=== PATIENT | female | born 1975 | race Caucasian/White ===

== ENCOUNTER 2018-05-03 09:49 | Emergency (ER) | payer MEDICAID ==
[~2018-05-03] VITALS: Ht 157.5 cm; Wt 75.9 kg
[2018-05-03 09:57] VITALS: Ht 157.5 cm; Wt 75.9 kg
[2018-05-03] MEDS ORDERED: ONDANSETRON (ODT) 4 MG TAB ODT STA (10:28)
[2018-05-03] MEDS ORDERED: HYDROCODONE/APAP (5/325) TAB PO ONE (10:30)
[2018-05-03] MEDS ORDERED: HYDR-4011 PO (13:14)
[2018-05-03] MEDS ORDERED: CIPR500T4 PO (13:14)
[2018-05-03 13:26] VITALS: BP 107/71; RESP 18
--- NOTE | 2018-05-03 13:29 | ERD ---
ER Documentation Chief Complaint Chief Complaint Complains of abdominal and back pain x 3 days HPI 42-year-old female presenting with abdominal pain back pain times 3 days. Patient has had normal urination bowel movement. She states that she has flank pain on the left side. Denies vomiting no fevers. Denies dysuria. Denies med ical problems. She describes as a constant type pain that is sharp and stabbing. NKDA. Surgical history denies. Up-to-date on vaccinations. Social history denies ROS All systems reviewed and are negative except as per history of present illness. Medications Home Meds Active Scripts Hydrocodone/Acetaminophen ([place] 5-325 Tablet) 1 Each Tablet, 1 TAB PO Q6H PRN for PAIN, #7 TAB Prov:AMANDO LANTIGUA PA-C 05/03/18 Ciprofloxacin Hcl* (Ciprofloxacin Hcl*) 500 Mg Tablet, 500 MG PO BID for 10 Days, TAB Prov:AMANDO LANTIGUA PA-C 05/03/18 Allergies Allergies: Coded Allergies: No Known Allergy (Verified , 05/03/18) PMhx/Soc Medical and Surgical Hx: pt denies Medical Hx, pt denies Surgical Hx History of Surgery: No Anesthesia Reaction: No Hx Neurological Disorder: No Hx Respiratory Disorders: No Hx Cardiac Disorders: No Hx Psychiatric Problems: No Hx Miscellaneous Medical Probl: No Hx Alcohol Use: No Hx Substance Use: No Hx Tobacco Use: No Smoking Status: Never smoker FmHx Family History: No diabetes, No coronary disease, No other Physical Exam Vitals Vital Signs Date Temp Pulse Resp B/P (MAP) Pulse Ox O2 O2 Flow FiO2 Time Delivery Rate 05/03/18 97.6 92 20 116/58 97 09:57 (77) Physical Exam GENERAL: The patient is well-appearing, well-nourished, in no acute distress CHEST: Clear to auscultation bilaterally. There are no rales, wheezes or rhonchi. HEART: Regular rate and rhythm. No murmurs, clicks, rubs or gallops. No S3 or S4. ABDOMEN: Normal active bowel sounds. No central clearing organomegaly. Mild toes palpation along the left flank. BACK: No midline or flank tenderness. Result Diagram: 05/03/18 1040 05/03/18 1040 Results 24 hrs Laboratory Tests Test 05/03/18 10:40 05/03/18 11:13 05/03/18 13:09 White Blood Count 10.1 10^3/ul Red Blood Count 3.61 10^6/ul Hemoglobin 11.1 g/dl Hematocrit 34.5 % Mean Corpuscular Volume 95.6 fl Mean Corpuscular Hemoglobin 30.7 pg Mean Corpuscular 32.2 g/dl Hemoglobin Concent Red Cell Distribution Width 14.2 % Platelet Count 318 10^3/UL Mean Platelet Volume 10.6 fl Immature Granulocytes % 0.400 % Neutrophils % 83.6 % Lymphocytes % 9.9 % Monocytes % 4.9 % Eosinophils % 0.9 % Basophils % 0.3 % Nucleated Red Blood Cells % 0.0 /100WBC Immature Granulocytes # 0.040 10^3/ul Neutrophils # 8.5 10^3/ul Lymphocytes # 1.0 10^3/ul Monocytes # 0.5 10^3/ul Eosinophils # 0.1 10^3/ul Basophils # 0.0 10^3/ul Nucleated Red Blood Cells # 0.0 10^3/ul Sodium Level 142 mmol/L Potassium Level 3.9 mmol/L Chloride Level 105 mmol/L Carbon Dioxide Level 24 mmol/L Anion Gap 13 Blood Urea Nitrogen 10 mg/dl Creatinine 0.68 mg/dl Est Glomerular Filtrat > 60 mL/min Rate mL/min Glucose Level 117 mg/dl Calcium Level 9.2 mg/dl Total Bilirubin 1.2 mg/dl Direct Bilirubin 0.00 mg/dl Indirect Bilirubin 1.2 mg/dl Aspartate Amino 32 IU/L Transf (AST/SGOT) Alanine 34 IU/L Aminotransferase (ALT/SGPT) Alkaline Phosphatase 91 IU/L Total Protein 8.1 g/dl Albumin 4.3 g/dl Globulin 3.80 g/dl Albumin/Globulin Ratio 1.13 Lipase 67 U/L POC Beta HCG, Qualitative NEGATIVE Bedside Urine pH (LAB) 6.0 Bedside Urine Protein (LAB) Negative Bedside Urine Glucose (UA) Negative Bedside Urine Ketones (LAB) Negative Bedside Urine Blood Trace-intact Bedside Urine Nitrite (LAB) Negative Bedside Urine Leukocyte Esterase 1+ (L Current Medications Medications Dose Sig/Angelita Start Time Status Last (Trade) Ordered Route PRN Stop Time Admin Dose Reason Admin 1 tab ONCE ONCE 05/03/18 DC 05/03/18 Acetaminophen PO 10:30 11:22 / 05/03/18 Hydrocodone 10:31 Bitart ([place] (5/325)) Ondansetron 4 mg ONCE STAT 05/03/18 DC 05/03/18 HCl (Zofran ODT 10:28 11:22 Odt) 05/03/18 10:30 Procedures/MDM DIAGNOSTIC IMAGING REPORT Patient: KASHIF SALGADO : 1975 Age: 42 Sex: F MR #: [id number] DOS: 05/03/18 1028 Ordering MD: NITA LANTIGUA PA-C Location: E Room/Bed: PROCEDURE: CT ABDOMEN AND PELVIS WITHOUT CONTRAST. CLINICAL INDICATION: Abdominal pain TECHNIQUE: CT scan of the abdomen and pelvis without contrast was performed on a multidetector high-resolution CT scanner. The patient was scanned without intravenous contrast. Coronal and sagittal reformatted images were obtained from the axial source images. Images were reviewed on a high-resolution PACS workstation. The total exam CTDI equals 13.8 mGy and the total exam DLP equals 809.8 mGy-cm. One or more of the following dose reduction techniques were used: Automated exposure control. Adjustment of the mA and/or kV according to patient size. Use of iterative reconstruction technique. DICOM images are available COMPARISON: None FINDINGS: CT abdomen: The lung bases are clear. The heart size is within normal limits. There is no significant pericardial effusion. Hepatic morphology is within normal limits. There is diffuse fatty infiltration of the liver. Gallbladder is unremarkable. No evidence of intrahepatic or extrahepatic biliary dilatation. The spleen and pancreas are within normal limits. Both adrenal glands are within normal limits. Both kidneys are normal anatomic position. The left kidney is enlarged and there is left perinephric fatty stranding. There is mild left-sided hydronephrosis. No gross ureteric calculi noted at this time. The visualized GI tract demonstrate normal caliber loops of small and large bowel. No obstruction. Stool filled loops of large bowel suggestive of constipation. The appendix is within normal limits. The unenhanced aorta is unremarkable. Several retroperitoneal periaortic lymph nodes are identified, with the largest measuring up to 1.[address] pelvis: The bladder is within normal limits. Nonspecific free fluid within the pelvis. Uterus is identified with fluid within the endometrial canal. There are bilateral cystic adnexa.. No significant pelvic lymphadenopathy. The visualized osseous structures appears to be within normal limits. IMPRESSION: 1. ENLARGED LEFT KIDNEY WITH LEFT PERINEPHRIC FATTY STRANDING AND MILD LEFT- SIDED HYDRONEPHROSIS. NO GROSS URETERIC CALCULI. SEVERAL PERIAORTIC RETROPERITONEAL LYMPH NODES ARE NOTED WITH THE LARGEST MEASURING UP TO 1.7 CM. SUSPECT UNDERLYING INFECTION, POSSIBLY PYELONEPHRITIS. EVALUATION IS LIMITED WITHOUT IV CONTRAST. A RECENTLY PASSED STONE IS ALSO A POSSIBILITY. CORRELATE WITH URINALYSIS. 2. Nonspecific free fluid within the pelvis. The uterus is mildly prominent with fluid within the endometrial canal. Findings can be physiologic. Consider correlation with ultrasound of the pelvis if clinically indicated. 3. Fatty liver. MDM: 42-year-old female presenting with left flank pain. I believe patient may have passed a stone however given there is concern for possible infection I will treat for early pyelonephritis. Urine was sent for culture. I have low suspicion for abdominal emergency. Patient's pain is controlled in the ER. Patient's blood work is within normal limits. Patient is discharged stricter precautions and told to follow-up with primary care within 1-2 days for close evaluation. Patient is told symptoms change or worsen to immediately return to the ER. All questions answered at discharge Departure Diagnosis: Primary Impression: Abdominal pain Condition: Stable Patient Instructions: Abdominal Pain Referrals: [facility] YOU HAVE RECEIVED A MEDICAL SCREENING EXAM AND THE RESULTS INDICATE THAT YOU DO NOT HAVE A CONDITION THAT REQUIRES URGENT TREATMENT IN THE EMERGENCY DEPARTMENT. FURTHER EVALUATION AND TREATMENT OF YOUR CONDITION CAN WAIT UNTIL YOU ARE SEEN IN YOUR DOCTORS OFFICE WITHIN THE NEXT 1-2 DAYS. IT IS YOUR RESPONSIBILITY TO MAKE AN APPOINTMENT FOR FOLOW-UP CARE. IF YOU HAVE A PRIMARY DOCTOR --you should call your primary doctor and schedule an appointment IF YOU DO NOT HAVE A PRIMARY DOCTOR YOU CAN CALL OUR PHYSICIAN REFERRAL HOTLINE AT IF YOU CAN NOT AFFORD TO SEE A PHYSICIAN YOU CAN CHOSE FROM THE FOLLOWING [facility] [address] [facility] [address] [facility] [facility] [address] [facility] [address] [facility] [address] [facility]. [facility] [address] Additional Instructions: FOLLOW UP WITH YOUR PRIMARY CARE PHYSICIAN TOMORROW.Return to this facility if you are not improving as expected. AMANDO LANTIGUA PA-C May 03, 2018 13:29
== END 2018-05-03 13:26 | disposition home or self-care (01) ==
LOC: FTE 09:49
DX: R10.9 Unspecified abdominal pain (principal)
CPT/HCPCS: 36415; 74176; 80053; 81003; 81025; 83690; 85025; Z7502; Z7610

== ENCOUNTER 2018-05-05 14:34 | Emergency (ER) | payer MEDICAID ==
[~2018-05-05] VITALS: Wt 72.8 kg
[~2018-05-05 14:34] MED LIST: CIPR500T4 PO; HYDR-4011 PO
[2018-05-05] MEDS ORDERED: SOD CHLORIDE 0.9% 1,000 ML IV STA (16:20)
[2018-05-05] MEDS ORDERED: KETOROLAC 30 MG INJ IV STA (16:20)
[2018-05-05] MEDS ORDERED: NA PHOSPHATE/BIPHOS 133 ML ENEMA PR ONE (16:30)
[2018-05-05] MEDS ORDERED: DOCUSATE SODIUM 250 MG CAP PO ONE (16:30)
[2018-05-05] MEDS ORDERED: GLYCERIN (ADULT) SUPP PR ONE (16:30)
[2018-05-05] MEDS ORDERED: GLYC1SUP92 PR (17:14)
[2018-05-05] MEDS ORDERED: DOCU-144 PO (17:14)
--- NOTE | 2018-05-05 17:22 | ERD ---
ER Documentation Chief Complaint Chief Complaint CONSTIPATION X 4 DAYS HPI This is a 42-year-old female with a nonsignificant past medical history presents ED with complaints of constipation with associated left-sided abdominal pain that is been constant for the past 4 days. Patient states that she has not had a bowel movement in over 4 days. Patient was seen here 2 days ago for her abdominal pain and states that has been unchanged. Patient denies fever, chills, nausea, vomiting, melena, hematochezia, hemoptysis, dysuria, hematuria, vaginal pain or vaginal discharge. Denies all other symptoms. No known drug allergies. ROS All systems reviewed and are negative except as per history of present illness. Medications Home Meds Active Scripts Glycerin* (Glycerin (Adult)*) 1 Each Supp.rect, 1 EACH ND DAILY PRN for CONSTIPATION for 5 Days, SUPP.RECT Prov:MISAEL ZAPATA PA-C 05/05/18 Docusate Sodium* (Colace*) 100 Mg Capsule, 100 MG PO TID, #30 CAP Prov:MISAEL ZAPATA PA-C 05/05/18 Hydrocodone/Acetaminophen ([place] 5-325 Tablet) 1 Each Tablet, 1 TAB PO Q6H PRN for PAIN, #7 TAB Prov:AMANDO LANTIGUA PA-C 05/03/18 Ciprofloxacin Hcl* (Ciprofloxacin Hcl*) 500 Mg Tablet, 500 MG PO BID for 10 Days, TAB Prov:AMANDO LANTIGUA PA-C 05/03/18 Allergies Allergies: Coded Allergies: No Known Allergy (Verified , 05/03/18) PMhx/Soc History of Surgery: No Anesthesia Reaction: No Hx Neurological Disorder: No Hx Respiratory Disorders: No Hx Cardiac Disorders: No Hx Psychiatric Problems: No Hx Miscellaneous Medical Probl: No Hx Alcohol Use: No Hx Substance Use: No Hx Tobacco Use: No Smoking Status: Never smoker FmHx Family History: No diabetes Physical Exam Vitals Vital Signs Date Temp Pulse Resp B/P (MAP) Pulse Ox O2 O2 Flow FiO2 Time Delivery Rate 05/05/18 98.1 78 88 121/61 99 14:38 (81) Physical Exam Const: No acute distress Head: Atraumatic Eyes: Normal Conjunctiva ENT: Normal External Ears, Nose and Mouth. Neck: Full range of motion. No meningismus. Resp: Clear to auscultation bilaterally Cardio: Regular rate and rhythm, no murmurs Abd: Soft, nondistended, no peritoneal signs, no rigidity, no surgical abdomen, bowel sounds present all 4 quadrants, nontender light palpation all 4 quadrants Back: No midline or flank tenderness Ext: No cyanosis, or edema Neur: Awake and alert Psych: Normal Mood and Affect Result Diagram: 05/05/18 1640 05/05/18 1640 Results 24 hrs Laboratory Tests Test 05/05/18 16:40 05/05/18 16:44 05/05/18 17:20 White Blood Count 10.5 10^3/ul Red Blood Count 3.63 10^6/ul Hemoglobin 11.0 g/dl Hematocrit 34.3 % Mean Corpuscular Volume 94.5 fl Mean Corpuscular Hemoglobin 30.3 pg Mean Corpuscular 32.1 g/dl Hemoglobin Concent Red Cell Distribution Width 13.7 % Platelet Count 311 10^3/UL Mean Platelet Volume 10.2 fl Immature Granulocytes % 0.400 % Neutrophils % 79.3 % Lymphocytes % 12.4 % Monocytes % 6.7 % Eosinophils % 0.9 % Basophils % 0.3 % Nucleated Red Blood Cells % 0.0 /100WBC Immature Granulocytes # 0.040 10^3/ul Neutrophils # 8.4 10^3/ul Lymphocytes # 1.3 10^3/ul Monocytes # 0.7 10^3/ul Eosinophils # 0.1 10^3/ul Basophils # 0.0 10^3/ul Nucleated Red Blood Cells # 0.0 10^3/ul Sodium Level 139 mmol/L Potassium Level 3.7 mmol/L Chloride Level 101 mmol/L Carbon Dioxide Level 27 mmol/L Anion Gap 11 Blood Urea Nitrogen 11 mg/dl Creatinine 0.85 mg/dl Est Glomerular Filtrat > 60 mL/min Rate mL/min Glucose Level 98 mg/dl Calcium Level 9.6 mg/dl Total Bilirubin 1.6 mg/dl Direct Bilirubin 0.00 mg/dl Indirect Bilirubin 1.6 mg/dl Aspartate Amino 34 IU/L Transf (AST/SGOT) Alanine 31 IU/L Aminotransferase (ALT/SGPT) Alkaline Phosphatase 96 IU/L Total Protein 9.0 g/dl Albumin 4.7 g/dl Globulin 4.30 g/dl Albumin/Globulin Ratio 1.09 Lipase 53 U/L POC Beta HCG, Qualitative NEGATIVE Urine Color YELLOW Urine Clarity SLIGHTLY CLOUDY Urine pH 5.0 Urine Specific [place] 1.016 Urine Ketones NEGATIVE mg/dL Urine Nitrite NEGATIVE mg/dL Urine Bilirubin NEGATIVE mg/dL Urine Urobilinogen 1+ mg/dL Urine Leukocyte Esterase 3+ Delores/ul Urine Microscopic RBC 5 /HPF Urine Microscopic WBC 68 /HPF Urine Squamous Epithelial Cells FEW /HPF Urine Bacteria FEW /HPF Urine Mucus FEW /HPF Urine Hemoglobin 2+ mg/dL Urine Glucose NEGATIVE mg/dL Urine Total Protein NEGATIVE mg/dl Current Medications Medications Dose Sig/Angelita Start Time Status Last (Trade) Ordered Route PRN Stop Time Admin Dose Reason Admin Sodium 1,000 ml @ Q1H STAT 05/05/18 DC 05/05/18 Chloride 1,000 mls/hr IV 16:20 16:48 05/05/18 17:19 Ketorolac 30 mg ONCE STAT 05/05/18 DC Tromethamine IV 16:20 (Toradol) 05/05/18 16:29 Docusate 250 mg ONCE ONCE 05/05/18 DC 05/05/18 Sodium PO 16:30 16:48 (Colace) 05/05/18 16:31 Sodium 133 ml ONCE ONCE 05/05/18 DC Biphosphate/ ND 16:30 Sodium 05/05/18 Phosphate 16:30 (Fleet Enema) Glycerin 1 supp ONCE ONCE 05/05/18 DC 05/05/18 (Glycerin ND 16:30 16:48 (Adult)) 05/05/18 16:31 Procedures/MDM LAB INTERPRETATION: CBC shows no evidence of hemorrhage or infection, mildly decreased hemoglobin of 11.0, hematocrit 34.3 Chemistry shows no evidence of significant electrolyte abnormalities or renal insufficiency, mildly increased indirect bilirubin 1.6 and total bilirubin of 1.6. Liver function test shows no evidence of acute biliary or hepatic dysfunction Lipase shows no evidence of acute pancreatitis Urinalysis remarkable for WBC, leukocyte esterase ER COURSE: The patient was given IV fluids, glycerin suppository and Colace The medication was well tolerated and the patient reports improvement in symptoms. The patient was stable throughout ED course. I kept the patient and/or family informed of laboratory and diagnostic imaging results throughout the emergency room course. The patient was promptly evaluated and a treatment plan was devised based on H&P and other data. This plan was discussed with the patient who agreed and had no further questions or concerns prior to discharge. MEDICAL DECISION MAKING: This is a 42-year-old female who presents ED with complaints of constipation with associated left-sided lower abdominal pain times 4 days. Patient was seen here 2 days ago and had a full workup for abdominal pain. Patient had a CT at this time which showed a possible pyelonephritis or possibly a recently passed stone. Patient was sent home with pain medication as well as ciprofloxacin. Patient returns today saying that she has been constipated over the past 4 days as well as continued left lower quadrant abdominal pain. Discussed with patient that a side effect of the pain medication is constipation. Patient was given constipation medication in the emergency department reports feeling better. . test is negative. Considered causes of female-specific abdominal pain including pelvic inflammatory disease, tubo-ovarian abscess, [id number], and ovarian torsion. Also considered causes of abdominal pain that are not gender-specific (e.g., appendicitis, volvulus, small bowel obstruction, mesenteric adenitis, acute cholecystitis/choledocholithiasis and other biliary pathology, etc.). Patient well-appearing with normal vital signs. No peritoneal signs and abdomen benign on multiple repeat examinations. Pt well hydrated. Laboratory testing and prior imaging here reviewed. Urinalysis is remarkable for WBCs and leukocyte esterase positive. It is likely that patient's left- sided lower abdominal pain is due to a pyelonephritis as wells as constipation. Patient is currently taking ciprofloxacin that was prescribed by provider 2 days ago. Advised patient to continue this medication for patient will be sent home with constipation medication. Patient given strict return precautions for worsening pain, inability to eat/drink, fevers (temperature over 100.4F), or other concerns. Prior to discharge all questions answered. She agrees with treatment plan and understands strict return precautions. Follow-up for repeat abdominal exam within 12 hours. DISPOSITION PLAN: We discussed follow up with the patient's primary care doctor within 24 to 48 hours. Patient counseled regarding my diagnostic impression and care plan. Prior to discharge all questions answered. Pt agrees with treatment plan and understands strict return precautions. Precautionary instructions provided including instructions to return to the ER if not improving or for any worsening or changing symptoms or concerns. SPECIALIST FOLLOW UP RECOMMENDED: GI Patient has been advised to follow up with primary care in 1-2 days. Disclaimer: Inadvertent spelling and grammatical errors are likely due to EHR/dictation software use and do not reflect on the overall quality of patient care. Also, please note that the electronic time recorded on this note does not necessarily reflect the actual time of the patient encounter. Departure Diagnosis: Primary Impression: Pyelonephritis Additional Impressions: Abdominal pain Abdominal location: left lower quadrant Qualified Codes: R10.32 - Left lower quadrant pain Constipation Constipation type: unspecified constipation type Qualified Codes: K59.00 - Constipation, unspecified Condition: Stable Patient Instructions: Abdominal Pain, Constipation (Adult), Pyelonephritis, Female (Adult), Treating Constipation Referrals: YVAN WILSON MD,KYLAH HOLLAND,SERGIO NAJERA,JOSE L HERRERA,JD MARTINEZ,[facility] () Usted se schroeder hecho un examen mdico de control que le indica que no est en frank condicin que requiera tratamiento urgente en el Departamento de Emergencia. Un estudio ms profundo y el tratamiento de ryan condicin pueden esperar sin ningn riesgo hasta que usted sea atendida/o en el consultorio de ryan mdico o frank clnica. Es responsabilidad suya arreglar frank mellisa para el seguimiento del rihcardson. MANEJO DE CONDICIONES NO URGENTES EN EL FUTURO 1) Si usted tiene un mdico de atencin primaria: Usted debera llamar a ryan mdico de atencin primaria antes de venir al departamento de emergencia. Despus de las horas de consultorio, ryan doctor o ryan asociado/a est disponible por telfono. El mdico o enfermero de jakub en el servicio telefnico puede asesorarle por neftali medio para atender el problema, o richardson contrario se puede programar frank mellisa. 2) Si usted no tiene un mdico de atencin primaria: Llame al mdico o clnica de referencia que aparece abajo elyssa las horas de consultorio para hacer frank mellisa para que le vean. CLINICAS: [facility] [phone] [address] [facility] [phone] [facility] [phone] [place] [address] [phone] [place] [id number] [phone] [facility] [phone] [address] Additional Instructions: Paciente aconseja volver a Departamento de urgencias inmediatamente para sntomas nuevos o que empeoran . Paciente aconseja posteriores con el PCP en 1-2 gonzalez . Paciente verbaliza la comprehensin y est de acuerdo con el tratamiento y el curso de accin. Si el paciente no tiene ninguna de atencin primaria pueden seguir con [facility] [address] [place] [address] o LAC + [address] [address] MISAEL ZAPATA PA-C May 05, 2018 17:22
[2018-05-05] MEDS ORDERED: IBUP-1542 PO (17:57)
[2018-05-05 18:10] VITALS: BP 118/68; PULSE 71; RESP 16
== END 2018-05-05 18:11 | disposition home or self-care (01) ==
LOC: FTE 14:34
DX: N12 Tubulo-interstitial nephritis, not specified as acute or chronic (principal)
CPT/HCPCS: 80053; 81001; 81025; 83690; 85025; 87086; J7030; Z7610; 36415; 96360

== ENCOUNTER 2018-10-26 20:29 | Emergency (ER) | payer MEDICAID ==
[~2018-10-26] VITALS: Ht 157.5 cm; Wt 68.9 kg
[~2018-10-26 20:29] MED LIST changes: +DOCU-144 PO; +GLYC1SUP92 PR; +IBUP-1542 PO
[2018-10-26 20:31] VITALS: Ht 157.5 cm; Wt 68.9 kg
--- NOTE | 2018-10-26 22:35 | ERD ---
ER Documentation Chief Complaint Chief Complaint pelvic pain x3 weeks w/ dysuria and frequency HPI This is a 43-year-old female presents here in the emergency department with complaints of suprapubic pain for about 3 weeks with dysuria. Stated that she has these symptoms before and that she knows that she needs cephalexin and Pyridium. LMP: September 17, 2018. G3, . Denies headache, head injury, loss of consciousness, dizziness, neck pain, neck stiffness, throat pain, difficulty swallowing, difficulty breathing lying flat, shoulder pain, chest pain, back pain, abdominal pain, nausea, vomiting, constipation, diarrhea, or possibility being , loss of bowel and bladder control, trauma, injury, falls, difficulty walking due to pain, numbness or tingling sensation, calf pain, recent travel, recent major surgery in the last 3 weeks, calf pain, recent long travel, recent exposure to any illness, recent antibiotic use in the last 3 months, fever, chills, seizures. Past medical history: Surgical history: Social: Denies smoking, use of alcoholic beverages, use of illegal drugs. ROS All systems reviewed and are negative except as per history of present illness. Medications Home Meds Active Scripts Cephalexin* (Keflex*) 500 Mg Capsule, 500 MG PO TID for 7 Days, CAP Prov:PASILABANANGELA F 10/26/18 Phenazopyridine Hcl* (Pyridium*) 100 Mg Tab, 100 MG PO TID PRN for URINARY PAIN, #8 TAB Prov:PASILABAN,JACQUELINAR F 10/26/18 Ibuprofen* (Motrin*) 600 Mg Tab, 600 MG PO Q6H PRN for PAIN AND OR ELEVATED TEMP, #30 TAB Prov:PASILABAN,JACQUELINAR F 10/26/18 Ibuprofen* (Motrin*) 600 Mg Tab, 600 MG PO Q6, #30 TAB Prov:MISAEL ZAPATA PA-C 05/05/18 Glycerin* (Glycerin (Adult)*) 1 Each Supp.rect, 1 EACH HI DAILY PRN for CONSTIPATION for 5 Days, SUPP.RECT Prov:MISAEL ZAPATA PA-C 05/05/18 Docusate Sodium* (Colace*) 100 Mg Capsule, 100 MG PO TID, #30 CAP Prov:MISAEL ZAPATA PA-C 05/05/18 Hydrocodone/Acetaminophen (Axson 5-325 Tablet) 1 Each Tablet, 1 TAB PO Q6H PRN for PAIN, #7 TAB Prov:AMANDO LANTIGUA PA-C 05/03/18 Ciprofloxacin Hcl* (Ciprofloxacin Hcl*) 500 Mg Tablet, 500 MG PO BID for 10 Days, TAB Prov:AMANDO LANTIGUA PA-C 05/03/18 Allergies Allergies: Coded Allergies: No Known Allergy (Verified , 10/26/18) PMhx/Soc Medical and Surgical Hx: pt denies Medical Hx, pt denies Surgical Hx History of Surgery: No Anesthesia Reaction: No Hx Neurological Disorder: No Hx Respiratory Disorders: No Hx Cardiac Disorders: No Hx Psychiatric Problems: No Hx Miscellaneous Medical Probl: No Hx Alcohol Use: No Hx Substance Use: No Hx Tobacco Use: No Smoking Status: Never smoker Physical Exam Vitals Physical Exam Const: No acute distress Head: Atraumatic Eyes: Normal Conjunctiva. Color appears normal for ethnicity. ENT: Normal External Ears, Nose and Mouth. Neck: Full range of motion. No meningismus. Resp: Clear to auscultation bilaterally Cardio: Regular rate and rhythm, no murmurs Abd: Soft, non tender, non distended. Normal bowel sounds. Negative Lopez sign. Negative [place] sign (heel jar test). Negative psoas sign. Negative Rovsing sign. Able to jump 10 times without developing lower abdominal pain. No CVA tenderness. Ambulatory with steady gait and without pain to abdomen. Skin: No petechiae or rashes. Color appears normal for ethnicity. No skin tenting. No signs of severe dehydration. Back: No midline or flank tenderness Ext: No cyanosis, or edema Neur: Awake and alert. No neurological deficits. Psych: Normal Mood and Affect Results 24 hrs Laboratory Tests Test 10/26/18 22:08 10/26/18 22:14 Urine Color YELLOW Urine Clarity CLEAR Urine pH 6.0 Urine Specific [place] 1.013 Urine Ketones NEGATIVE mg/dL Urine Nitrite NEGATIVE mg/dL Urine Bilirubin NEGATIVE mg/dL Urine Urobilinogen 2+ mg/dL Urine Leukocyte Esterase TRACE Delores/ul Urine Microscopic RBC 1 /HPF Urine Microscopic WBC 7 /HPF Urine Squamous Epithelial Cells FEW /HPF Urine Hemoglobin NEGATIVE mg/dL Urine Glucose NEGATIVE mg/dL Urine Total Protein NEGATIVE mg/dl Bedside Urine pH (LAB) 6.0 Bedside Urine Protein (LAB) Negative Bedside Urine Glucose (UA) Negative Bedside Urine Ketones (LAB) Negative Bedside Urine Blood Negative Bedside Urine Nitrite (LAB) Negative Bedside Urine Leukocyte Esterase (L Trace POC Beta HCG, Qualitative NEGATIVE Current Medications Medications Dose Sig/Angelita Start Time Status Last (Trade) Ordered Route PRN Stop Time Admin Dose Reason Admin Ibuprofen 400 mg ONCE ONCE 10/26/18 DC 10/26/18 (Motrin) PO 23:30 23:39 10/26/18 23:31 100 mg ONCE ONCE 10/26/18 DC 10/26/18 Phenazopyridi PO 23:30 23:39 ne HCl 10/26/18 23:31 (Pyridium) Procedures/MDM Diagnostic tests: POC urine : Negative. Urinalysis: Reviewed. Culture urine: Sent. Treatment: Motrin. Pyridium. Re-evaluation: No episode of necessary in the emergency department. Denies chest pain, back pain, abdominal pain, pelvic pain. Negative Lopez sign. Negative [place] sign (heel jar test). Negative psoas sign. Negative Rovsing sign. No CVA tenderness. Differential diagnosis I have low suspicion for sepsis, pancreatitis, cholecystitis, diverticulitis, appendicitis, bowel obstruction, PID, nephrolithiasis, pyelonephritis, obstructing kidney stones, septic stone. Final diagnosis: Dysuria. Treated for UTI and dysuria. Prescription: Keflex. Pyridium. Motrin. Follow-up with PCP in the next 24-48 hours. Come back here in the emergency department for any new symptoms or any worsening symptoms. All questions and concerns were answered. Patient and family members verbalized understanding and agreed with plan of care. Hemodynamically stable on discharge. Departure Diagnosis: Primary Impression: Dysuria Condition: Stable Additional Instructions: Follow-up with PCP in the next 24-48 hours. Come back here in the emergency department for any new symptoms or any worsening symptoms. ANGELA BA Oct 26, 2018 22:35
[2018-10-26] MEDS ORDERED: CEPH-443 PO (23:07)
[2018-10-26] MEDS ORDERED: IBUP-1542 PO (23:07)
[2018-10-26] MEDS ORDERED: PHEN-537 PO (23:07)
[2018-10-26] MEDS ORDERED: IBUPROFEN 200 MG TAB PO ONE (23:30)
[2018-10-26] MEDS ORDERED: PHENAZOPYRIDINE 100 MG TAB PO ONE (23:30)
[2018-10-26 23:46] VITALS: BP 104/54; PULSE 81; RESP 16
== END 2018-10-26 23:46 | disposition home or self-care (01) ==
LOC: FTE 20:29
DX: R30.0 Dysuria (principal)
CPT/HCPCS: 81001; 81025; 87086; Z7502; Z7610; 81003; 99283